=== PATIENT | male | born 1950 | race Caucasian/White ===

== ENCOUNTER → 2017-01-23 | Outpatient (CLI) | payer BC ==
[~2017-01-23] MED LIST: COUMADIN 2 MG TA2 M1 PO; HYDROCODON-ACE1 EAC5 PO; NABUMETONE 750750 M1 PO; NEURONTIN 300300 M1 PO; SUDAFED 12 HOU120 MG PO
== END ==
LOC: ULTRA 14:04
DX: M25.462 Effusion, left knee (principal)

== ENCOUNTER 2017-03-09 05:38 | Inpatient (IN) | payer OTHER ==
[2017-03-01 12:26] LABS: PROTIME 10.2 Seconds (9.3-11.4)
[~2017-03-09] VITALS: Ht 198.1 cm; Wt 132.0 kg
[2017-03-09] VITALS (13 sets, daily range): BP systolic 85–142; BP diastolic 47–78
--- NOTE | ~2017-03-09 | EKG ---
[address] [address] ELECTROCARDIOGRAM REPORT Name: ANGELICA PALMER Room #: 402-P ADM IN M.R.#: [id number] Admission: 03/09/17 Attend Phys: Terry Harmon MD Discharge: Date of : 50 Report #: [id number] THIS REPORT FOR: //name// [facility] Test Date: 2017-03-10 Test Time: 10:19:21 Pat Name: ANGELICA PALMER Department: Room: 402 P Gender: M Sales Ambassador: Xi MCNALLY : 1950 Requested By: Terry Carvajal Order Number: [id number] MD: Douglas Mata Measurements Intervals Leland Rate: 73 P: 17 IN: 203 QRS: 7 QRSD: 99 T: 35 QT: 385 QTc: 425 Interpretive Statements Sinus rhythm Low voltage, precordial leads No previous ECG available for comparison Electronically Signed On 03-11-2017 12:40:03 CDT by Douglas Mata [email or web address] <ELECTRONICALLY SIGNED> By: Douglas Mata MD 03/11/17 1240 1019 1019 Douglas Mata MD /DOLLY
--- NOTE | ~2017-03-09 | O ---
[facility] [place] [address] OPERATIVE REPORT Name: ANGELICA PALMER Room #: 402-P [facility] IN M.R.#: [id number] Admission: 03/09/17 Attend Phys: Terry Harmon MD Discharge: Date of : 50 Report #: [id number] THIS REPORT FOR: //name// CC: Santos Mikki Terry Harmon DATE OF SERVICE: 03/09/2017 PREOPERATIVE DIAGNOSIS: End-stage degenerative arthritis, left knee. POSTOPERATIVE DIAGNOSIS: End-stage degenerative arthritis, left knee. PROCEDURE: Left total knee arthroplasty. SURGEON: Terry Harmon MD INDICATIONS: This 66-year-old gentleman has moderate diffuse degenerative arthritis. He underwent previous left total hip arthroplasty with good result. He now has progressive degenerative change in the left knee with moderate valgus malalignment. He has tried conservative measure without clear improvement and has elected to go ahead with left total knee arthroplasty. DESCRIPTION OF PROCEDURE: The patient was taken to the operating room where he was placed under general anesthesia. Prophylactic intravenous antibiotics were administered. The left knee and leg were meticulously prepped and draped and a thigh tourniquet inflated to 300 mmHg. An anterior longitudinal skin incision was made and carried along the medial peripatellar retinaculum. The patella was reflected laterally. Marked degenerative change in all 3 compartments was noted. The [employer]endez [employer] Nephew knee system was utilized. Intramedullary guides were used on both the femur and the tibia. The femur was found to be in rather significant valgus alignment. This was improved significantly, but left at about 6 degrees of valgus. The femur seemed to be best suited for a size 7 left femoral component. Good exposure of the proximal tibia was established and an intramedullary guide was used. The tibia was cut perpendicular long axis to the bone. Osteophytes were removed from around its margin. A size 6 tibial plate seemed to fit nicely. The patellar surface was resected and a 38 mm patellar button seemed to fit most appropriately. Appropriate anchor holes were created. A trial reduction was performed and the knee seemed best suited for a 12 mm polyethylene tibial insert. This resulted in full extension with good stability and flexion beyond 130 degrees with good stability and flexion as well. The patella seemed to track reasonably well, although due to the valgus alignment, there was some tendency for slight lateral subluxation. This was improved with a limited lateral release and I felt this would do nicely once the medial retinaculum was once again repaired. The trial components were then removed. The surfaces were thoroughly irrigated and dried. Appropriate anchor holes were created. The intramedullary canal was blocked with a bone block on both the [address] [address] OPERATIVE REPORT Name: ANGELICA PALMER Room #: 402-P [facility] IN .R.#: [id number] Admission: 03/09/17 Attend Phys: Terry Harmon MD Discharge: Date of : 50 Report #: [id number] femur and the tibia. Methyl methacrylate cement was mixed and injected into the porous surface of the tibia. The Melendez [employer] Nephew size 6 tibial component was then inserted. This was impacted into position and seated nicely. Excess cement was removed from around its margin. A 12 mm polyethylene insert was then applied. It snapped into place and seated nicely and appeared to be secure. The size 7 left femoral component was impacted on to the distal femur in a noncemented technique. It seated nicely and appeared to be very secure. The 38 mm patellar button was cemented in place with appropriate anchor holes. It was secured with a patellar clamp until the cement had hardened. Once all cement was firm, range of motion, alignment, and stability were once again assessed and felt to be satisfactory. At this point, a Hemovac was left in the wound exiting through a separate stab incision. The fascia was closed with multiple #1 Vicryl sutures. The tourniquet was deflated after a total tourniquet time of 68 minutes. The subcutaneous tissues were closed with 0 Monocryl. The skin was closed with skin malachi. A sterile dressing was applied. The patient was awakened and returned to recovery room in good condition. <ELECTRONICALLY SIGNED> By: Terry Harmon MD 03/10/17 1034 [id number] Terry Hramon MD /nt
[~2017-03-09 05:38] MED LIST changes: +CENTRUM SILVER1 EAC4 PO; +VALSARTAN-HCTZ1 EAC1 PO; +ZESTORETIC 20-1 EAC3 PO
[2017-03-10 00:36] VITALS: BP 95/47
[2017-03-10 04:10] LABS: HEMATOCRIT 32.9 % (42.0-52.0); HEMOGLOBIN 11.2 gm/dL (14.0-18.0); MCH 31.8 pg (26.0-34.0); MCHC 34.2 g/dL (28.0-37.0); MCV 93.1 fL (80.0-100.0); RBC 3.53 mil/uL (4.50-6.00); RDW 13.1 % (10.5-14.5); WBC 10.1 thou/uL (4.0-11.0)
[2017-03-10 05:18] VITALS: BP 85/53
[2017-03-10 07:15] VITALS: BP 92/46
[2017-03-10 09:39] LABS: CALCIUM 8.6 mg/dL (8.5-10.1); CREATININE 1.6 mg/dL (0.7-1.3); POTASSIUM 4.5 mmol/L (3.5-5.1)
[2017-03-10 15:15] VITALS: BP 112/71
[2017-03-10 20:00] VITALS: BP 142/65
[2017-03-11 03:23] VITALS: BP 150/82
[2017-03-11 04:47] LABS: HEMATOCRIT 29.8 % (42.0-52.0); HEMOGLOBIN 10.2 gm/dL (14.0-18.0); MCH 31.8 pg (26.0-34.0); MCHC 34.1 g/dL (28.0-37.0); MCV 93.2 fL (80.0-100.0); RBC 3.19 mil/uL (4.50-6.00); RDW 12.8 % (10.5-14.5)
[2017-03-11 04:57] LABS: CALCIUM 8.4 mg/dL (8.5-10.1); CREATININE 0.8 mg/dL (0.7-1.3); POTASSIUM 4.2 mmol/L (3.5-5.1)
[2017-03-11 08:18] VITALS: BP 109/65
[2017-03-11 16:30] VITALS: BP 131/75
[2017-03-12 03:07] VITALS: BP 124/67
[2017-03-12 03:51] LABS: HEMATOCRIT 27.8 % (42.0-52.0); HEMOGLOBIN 9.8 gm/dL (14.0-18.0); MCH 32.4 pg (26.0-34.0); MCHC 35.4 g/dL (28.0-37.0); MCV 91.5 fL (80.0-100.0); RBC 3.04 mil/uL (4.50-6.00); RDW 12.9 % (10.5-14.5); WBC 6.7 thou/uL (4.0-11.0)
[2017-03-12 08:53] VITALS: BP 134/76
[2017-03-12] MEDS ORDERED: XARELTO10 MG PO (08:53)
[2017-03-12] MEDS ORDERED: PERCOCET 10-321 EACH PO (08:53)
[2017-03-12 11:38] VITALS: BP 96/55
== END 2017-03-12 14:40 | disposition home health service (06) | DRG 470 ==
LOC: 4N 05:38 → TBA 05:38 → PRE 08:01 → 4S 12:59 → 4N 16:57
PROVIDERS: Internal Medicine Geriatric Medicine; Orthopaedic Surgery
PROC: 0SRD0J9 Replacement of Left Knee Joint with Synthetic Substitute, Cemented, Open Approach (ICD-10-PCS; principal; 2017-03-09)
DX: M17.12 Unilateral primary osteoarthritis, left knee (principal); I10 Essential (primary) hypertension; M67.962 Unspecified disorder of synovium and tendon, left lower leg; I95.81 Postprocedural hypotension; Z88.6 Allergy status to analgesic agent; Z79.899 Other long term (current) drug therapy; Z91.041 Radiographic dye allergy status; Z82.49 Family history of ischemic heart disease and other diseases of the circulatory system; Z82.61 Family history of arthritis
CPT/HCPCS: 10790; 50010; 50101; 50415; 50954; 51130; 51225; 51412; 51771; 53000; 53364; 56525; 62110; 62900; 64042; 70005